=== PATIENT | male | born 1950 | race Caucasian/White ===

== ENCOUNTER 2017-11-03 10:16 | Outpatient (CLI) | payer MEDICARE, BC ==
[~2017-11-03 10:16] MED LIST: Gadobenate Dimeglumine 529 MG/1 ML (20ML VIAL) ONE
--- NOTE | 2017-11-03 15:06 | MRI ---
MRI LUMBAR SPINE WITH AND WITHOUT GADOLINIUM CONTRAST: History: Low back pain, worsening for two years. Remote injury. FINDINGS: The conus medullaris has a normal appearance. Vertebral body height are maintained. Bone marrow signa l is within normal limits. There is desiccation of the intervertebral discs. T12-L1, L1-2: There is mild osteophytosis. The central canal and neural foramina are patent. L2-3: Mild posterior disc bulge and a congenitially small central canal, along with posterior ligamen tous thickening and facet hypertrophy result in mild stenosis of the central canal. L3-4: There is a grade I degenerative spondylolisthesis at this level and disc space narrowing. Poste rior disc bulge, along with facet joint hypertrophy and ligamentous thickening result in severe steno sis of the central spinal canal and moderate stenosis of each neural foramen. L4-5: Posterior dis bulge along with facet joint hypertrophy and ligamentous thickening result in mil d stenosis of the central canal. There is stenosis of each neural foramen at this level. L5-S1: A focal right posterior lateral herniation of the intervertebral disc at this level compresses the right S1 nerve root origin. The thecal sac is not significantly compressed. Degenerative changes at this level result in moderate to severe stenosis of each neural foramen. IMPRESSION: 1. Right posterolateral disc herniation at the lumbosacral junction compressing the right L5 nerve ro ot origin. 2. Multilevel degenerative changes with central canal stenosis, most severe at the L3-4 level and for aminal stenoses greatest at the L4-5 level. POS: [facility]
== END 2017-11-03 10:17 | disposition home or self-care (01) ==
LOC: SCSMRI 10:16
PROVIDERS: ATTEND Nurse Practitioner Family
DX: M51.16 Intervertebral disc disorders with radiculopathy, lumbar region (principal); M47.26 Other spondylosis with radiculopathy, lumbar region; M48.061 Spinal stenosis, lumbar region without neurogenic claudication; M99.43 Connective tissue stenosis of neural canal of lumbar region
CPT/HCPCS: 72158; A9579

== ENCOUNTER 2017-12-27 09:58 | Outpatient (CLI) | payer BC, MEDICARE ==
--- NOTE | 2017-12-27 13:56 | MRI ---
MRI RIGHT HIP WITHOUT CONTRAST: Date: 12/27/17 INDICATION: Radiation of right hip pain to the front and back of the right hip since 2017. COMPARISON: None. TECHNIQUE: Multiplanar, multisequential MR images were obtained of the right hip without IV contrast. FINDINGS: There is a focal region of chondral labral separation involving the superior acetabulum, seen measuri ng 5.0 mm in thickness on image 23 of series 4. There is also adjacent full thickness chondral delami nation near the chondral labral tear on image 24 of series 4 with associated subchondral cyst-like ab normality. There is some tear extension into the superior acetabular labrum on image 24 of series 4. No large paralabral cyst is evident. Ligamentum teres intact. Right gluteus minimus and medius insert ions appear within normal limits. Iliopsoas appears within normal limits. Hamstring origins and rectu s femoris attachment appears within normal limits. Visualized intrapelvic contents demonstrate postsu rgical change of prior prostatectomy. Visualized rectum and perirectal soft tissues are unremarkable. There are moderate symphyseal degenerative changes present. No acute fracture is noted. IMPRESSION: 1. Partial thickness chondral labral tear involving the superior acetabular labrum with associated a djacent full thickness chondral labral delamination involving the superior and periphery acetabulum w ith associated subchondral cyst-likely abnormality. There is some tear extension from the region of c hondral labral separation into the superior acetabular labrum, best seen on image 24 of series 4. 2. No iliopsoas or intertrochanteric bursitis demonstrated. 3. Postoperative changes of prostatectomy. POS: [facility]
== END 2017-12-27 09:59 | disposition home or self-care (01) ==
LOC: SCSMRI 09:58
PROVIDERS: ATTEND Orthopaedic Surgery
DX: M25.551 Pain in right hip (principal); S73.191A Other sprain of right hip, initial encounter; Z90.79 Acquired absence of other genital organ(s)

== ENCOUNTER 2018-06-09 13:44 | Outpatient (CLI) | payer MEDICARE, BC ==
[2018-06-09 14:48] LABS: Anion Gap 14 mmol/L (10-20); BUN (Urea Nitrogen) 21 mg/dL (8.4-25.7); Calc. Creatinine Clearance 0 mL/min (70-130); Calcium 10.5 mg/dL (7.8-10.44); Carbon Dioxide 30 mmol/L (23-31); Chloride 101 mmol/L (98-107); Estimated GFR-MDRD 56; Glucose 124 mg/dL (80-115); Potassium 4.8 mmol/L (3.5-5.1); Sodium 140 mmol/L (136-145)
[2018-06-09 15:02] LABS: Hemoglobin 15.1 g/dL (14.0-18.0); Mean Corpuscular Hemoglobin 29.6 pg (27.0-31.0); Mean Corpuscular Volume 89.7 fL (78.0-98.0); Mean Platelet Volume 6.9 fL (7.4-10.4); Platelet Count 203 thou/uL (130-400); Red Blood Cell (RBC) Count 5.09 mill/uL (4.70-6.10); White Blood Cell (WBC) Count 7.1 thou/uL (4.8-10.8)
--- NOTE | 2018-06-11 23:19 | EKG ---
Test Reason : Blood Pressure : / mmHG Vent. Rate : 065 BPM Atrial Rate : 065 BPM P-R Int : 168 ms QRS Dur : 096 ms QT Int : 382 ms P-R-T Axes : 067 084 047 degrees QTc Int : 397 ms Normal sinus rhythm Normal ECG No previous ECGs available Confirmed by Chong POE ([id number]) on 06/11/2018 11:18:39 PM Referred By: BLANCA Confirmed By:Chong POE
== END 2018-06-09 13:45 | disposition home or self-care (01) ==
LOC: LABBT 13:44
PROVIDERS: ATTEND Neurological Surgery
DX: Z01.818 Encounter for other preprocedural examination (principal); M43.16 Spondylolisthesis, lumbar region; M54.16 Radiculopathy, lumbar region
CPT/HCPCS: 80048; 85027; 93005; 93010

== ENCOUNTER 2018-08-21 10:49 | Emergency (ER) | payer MEDICARE, BC ==
[2018-08-21] MEDS ORDERED: Fentanyl 100 MCG/2 ML VIAL ONE (11:28)
[2018-08-21] MEDS ORDERED: Ketorolac Tromethamine 60 MG/2 ML VIAL ONE (11:28)
[2018-08-21] MEDS ORDERED: Lorazepam 2 MG/ML VIAL ONE (11:28)
== END 2018-08-21 11:57 | disposition home or self-care (01) ==
LOC: ERS 10:49
DX: S39.012A Strain of muscle, fascia and tendon of lower back, initial encounter (principal); K21.9 Gastro-esophageal reflux disease without esophagitis; E78.5 Hyperlipidemia, unspecified; I10 Essential (primary) hypertension; X50.1XXA Overexertion from prolonged static or awkward postures, initial encounter
CPT/HCPCS: 96372; J1885; J2060; J3010

== ENCOUNTER 2018-10-03 13:45 | Outpatient (CLI) | payer MEDICARE, BC ==
--- NOTE | 2018-10-03 18:26 | RAD ---
LUMBAR SPINE 4 VIEWS: Date: 10/03/18 HISTORY: Lumbar spondylolisthesis. COMPARISON: Lumbar spine MRI dated 08/30/18. FINDINGS: Five non-rib bearing lumbar-type vertebrae. Mild narrowing of the L3-4, L4-5, and L5 disc spaces. The re are also small associated osteophytes at these levels. Small calcification noted over the left renal collecting system at the level of the L2 transverse pro cess. IMPRESSION: 1. Mild spondylosis. 2. Punctate calcification projecting over left renal collecting system may reflect a small calculus. POS: [facility]
== END 2018-10-03 13:46 | disposition home or self-care (01) ==
LOC: BICRAD 13:45
PROVIDERS: ATTEND Anesthesiology Pain Medicine
DX: M43.16 Spondylolisthesis, lumbar region (principal); M47.816 Spondylosis without myelopathy or radiculopathy, lumbar region
CPT/HCPCS: 72110